=== PATIENT | female | born 1935 | race Caucasian/White ===

== ENCOUNTER 2018-01-04 06:11 | Emergency (ER) | payer MEDICARE, OTHER ==
[~2018-01-04] VITALS: Ht 172.7 cm; Wt 59.9 kg
[~2018-01-04 06:11] MED LIST: AMOX-362 PO; ASPI81TA94 PO; DIGO0.25 PO; FLEC50TA16 PO; LEVO50TA86 PO; MULT-1372 PO; OLME1TAB63 PO
--- NOTE | 2018-01-04 06:13 | ER Report ---
History and Physical Time Seen By MD: 06:13 HPI/ROS CHIEF COMPLAINT: Fall, left occipital contusion and abrasion HISTORY OF PRESENT ILLNESS: 82-year-old female presents ambulatory to the ER with her . She states she has restless leg syndrome and gets up to ambulate multiple times a night for approximately 20 minutes each time. Tonight she fell. She does not think she had a syncopal episode. She does not remember tripping. She does not recall the event. She is on flecainide and digoxin for dysrhythmias. She notes no prodromal symptoms. She's alert and oriented. She denies neck pain, post fall. She thinks her last tetanus shot was 3 years ago. Patient has movement of all extremities without pain or difficulty. REVIEW OF SYSTEMS: Respiratory: No cough, no dyspnea. Cardiovascular: No chest pain, no palpitations. Gastrointestinal: No vomiting, no abdominal pain. Musculoskeletal: No back pain. Allergies: Coded Allergies: No Known Drug Allergies (Unverified , 01/04/18) Home Meds Reported Medications Losartan Potassium (LOSARTAN POTASSIUM) 25 Mg Tablet, 25 MG PO QDAY 01/04/18 Cholecalciferol (Vitamin D3) (VITAMIN D3) 1,000 Unit Tablet, PO DAILY, TAB 01/04/18 Multivitamin (DAILY VALUE) 1 Each Tablet, 1 EACH PO DAILY 10/21/14 Flecainide Acetate (FLECAINIDE ACETATE) 50 Mg Tablet, 50 MG PO BID 10/21/14 Digoxin (DIGOXIN) 0.25 Mg/5 Ml Solution, 0.25 MG PO DAILY 10/21/14 Levothyroxine Sodium (LEVOTHYROXINE SODIUM) 50 Mcg Tablet, 50 MCG PO QDAY 10/21/14 Aspirin (ASPIRIN) 81 Mg Tab.chew, 81 MG PO QDAY, TAB.CHEW TAKE 1 TABLET BY MOUTH EVERY DAY 10/21/14 Discontinued Reported Medications Olmesartan/Hydrochlorothiazide (BENICAR HCT 40-25 MG TABLET) 1 Each Tablet, 1 EACH PO DAILY 10/21/14 Reviewed Nurses Notes: Yes Old Medical Records Reviewed: Yes Hx Smoking: No Smoking Status: Never Smoker Hx Substance Use Disorder: No Hx Alcohol Use: No Constitutional Vital Sign - Last 24 Hours 01/04/18 06:18 Temp 97.8 Pulse 76 Resp 14 B/P (MAP) 195/89 Pulse Ox 92 O2 Delivery Room Air Physical Exam General Appearance: The patient is alert, has no immediate need for airway protection and no current signs of toxicity. Palpation of the head and neck reveals no tenderness or trauma. There is a small hematoma with an abrasion over it on the left occipital area with a small 2.0 cm laceration vertically. There is no tenderness on aggressive palpation of the cervical spine. HEENT: Pupils equal and round no injection. TMs normal, oropharynx without redness or exudate, no dental trauma Respiratory: Chest is non tender, lungs are clear to auscultation. No chest wall tenderness Cardiac: regular rate and rhythm Gastrointestinal: Abdomen is soft and non tender, no masses, bowel sounds normal. Musculoskeletal: Neck: Neck is supple and non tender. Extremities have full range of motion and are non tender. No evidence of trauma Skin: No rashes or lesions. DIFFERENTIAL DIAGNOSIS: After history and physical exam differential diagnosis was considered for head injury including but not limited to concussion, skull fracture, intraparenchymal contusion, subarachnoid, subdural and epidural hematoma. Medical Decision Making ED Course/Re-evaluation ED Course Patient was admitted to an examination room. H&P was done. The dental diagnoses was considered. On clinical examination. Patient has a scalp laceration from a ground-level fall. She has no cervical tenderness. Her mental status is normal. She voices no other complaints. Her tetanus status is verified is up-to-date. The wound is infiltrated with lidocaine 1% with epinephrine. Wound is cleaned. 3 bryson are used to approximate the 2.0 cm laceration. Wound care is discussed. Decision to Disposition Date: Jan 04, 2018 Decision to Disposition Time: 06:30 Depart Departure Latest Vital Signs Vital Signs Date Time Temp Pulse Resp B/P (MAP) Pulse Ox O2 Delivery O2 Flow Rate FiO2 01/04/18 06:18 97.8 76 14 195/89 92 Room Air Impression: Primary Impression: Scalp contusion Additional Impression: Laceration of occipital region of scalp Condition: Improved Disposition: HOME OR SELF-CARE Referrals: TONYA LANDAVERDE (PCP) Patient Instructions: Laceration (ED) Additional Instructions: Have your bryson removed in one week Problem Qualifiers Primary Impression: Scalp contusion Encounter type: initial encounter Qualified Codes: S00.03XA - Contusion of scalp, initial encounter Additional Impression: Laceration of occipital region of scalp Encounter type: initial encounter Qualified Codes: S01.01XA - Laceration without foreign body of scalp, initial encounter SINCERE MOLINA DO Jan 04, 2018 06:13
[2018-01-04 06:18] VITALS: BP 195/89
[2018-01-04] MEDS ORDERED: LOSA25TA50 PO (06:18)
[2018-01-04] MEDS ORDERED: CHOL10005 PO (06:18)
== END 2018-01-04 06:49 | disposition home or self-care (01) ==
LOC: ER 06:39
DX: S01.01XA Laceration without foreign body of scalp, initial encounter (principal); S00.03XA Contusion of scalp, initial encounter; W18.30XA Fall on same level, unspecified, initial encounter
CPT/HCPCS: 99282

== ENCOUNTER → 2018-07-06 | Outpatient (CLI) | payer MEDICARE, OTHER ==
[~2018-07-06] MED LIST changes: +CHOL10005 PO; +LOSA25TA50 PO
--- NOTE | 2018-07-06 14:15 | RADIOLOGY IMAGING REPORT ---
FACILITY: [facility] - [place] PATIENT NAME: RASHAWN PUGA : [id number] MR: [id number] V: [id number] EXAM DATE: ORDERING PHYSICIAN: TONYA LANDAVERDE TECHNOLOGIST: Shannon Cadet PROCEDURE:BILATERAL DIGITAL SCREENING MAMMOGRAM WITH CAD ASSISTED INTERPRETATION & 3D TOMOSYNTHESIS COMPARISON:Prior mammograms 07/03/17, 07/02/16, 06/02/16, 05/31/15, 05/30/14, 05/26/13. INDICATIONS:SCREENING FINDINGS: Extremely dense heterogeneous fibroglandular tissue is seen throughout the breasts. The parenchymal pattern has remained stable allowing for difference in mammographic technique & patient positioning. There is no evidence of malignant appearing mass, malignant appearing calcifications or other secondary sign of malignancy in either breast. DIAGNOSTIC CATEGORY 1--NEGATIVE. RECOMMENDATIONS: ROUTINE MAMMOGRAM AND CLINICAL EVALUATION. IMPRESSION: BIRADS 1: Negative. No significant abnormality is seen. Dictated by: Shanique Goss M.D. on 07/06/2018 at 11:53 Transcribed by: CHAVO on 07/06/2018 at 14:04 Approved by: Shanique Goss M.D. on 07/06/2018 at 14:14 [facility]
== END ==
LOC: MAMO 01:28
PROVIDERS: ATTEND Nurse Practitioner Psychiatric/Mental Health
DX: Z12.31 Encounter for screening mammogram for malignant neoplasm of breast (principal)
CPT/HCPCS: 77063; 77067

== ENCOUNTER → 2019-06-06 | Outpatient (CLI) | payer MEDICARE, OTHER ==
[~2019-06-06] MED LIST changes: +ACET-1966 PO; +DIGO250T76 PO; +FURO-45 PO; -LOSA25TA50 PO; +LOSA25TA57 PO; +LOSA50TA80 PO; +METO25TA23 PO; +ROPI2TAB28 PO
[2019-06-06 11:35] LABS: PLATELET COUNT, AUTOMATED 243 K/uL (150-450)
== END ==
LOC: LAB 11:12
PROVIDERS: ATTEND Emergency Medicine
DX: I48.91 Unspecified atrial fibrillation (principal); E03.9 Hypothyroidism, unspecified; F03.90 Unspecified dementia, unspecified severity, without behavioral disturbance, psychotic disturbance, mood disturbance, and anxiety; I10 Essential (primary) hypertension; G25.81 Restless legs syndrome
CPT/HCPCS: 36415; 80162; 82040; 82247; 82310; 82374; 82435; 82565; 82607; 82947; 83540; 83550; 84075; 84132; 84155; 84295; 84443; 84450; 84460; 84520; 85025

== ENCOUNTER → 2019-06-09 | Outpatient (CLI) | payer MEDICARE, OTHER ==
[~2019-06-09] MED LIST changes: +GADOBENATE 529MG/1ML 15ML VIAL IVP ONE
--- NOTE | 2019-06-09 10:34 | RADIOLOGY IMAGING REPORT ---
FACILITY: [facility] PATIENT NAME: Roxana Cody : 1935 MR: [id number] V: [id number] EXAM DATE: ORDERING PHYSICIAN: TRACI ENNIS TECHNOLOGIST: Location: [facility] - [place] Patient: Roxana Cody : 1935 Visit/Account:[id number] Date of Sevice: 06/09/2019 Examination: MR brain without and with contrast History: Dementia Comparison: None Technique: Multiplane MR imaging was performed through the brain without and with contrast. 14 cc IV multihance was administered. Findings: Diffusion: None Ventricles: Normal Midline shift: None Extraxial fluid: None Midline craniocervical structures: Enhancing lesion fills the sella and extends into the suprasellar cistern measuring 1.8 cm craniocaudad by 2.1 cm transverse by 1.5 cm AP dimension. Degenerative pann us posterior to the dens. Parenchyma: Punctate foci of hemosiderin staining in the right temporal and right occipital lobe in k eeping with residua of prior microhemorrhage. Mild confluent periventricular white matter high signa l. A few scattered punctate to small white matter high signal foci. The hippocampi appear mildly atrophic. Other: Hyperostosis frontalis noted. Partial enhancement of the left frontal region hyperostosis melissa sures 2.4 x 0.9 cm transverse, axial image 20 x 0.7 cm craniocaudad. Vascular flow voids: Normal Orbits and paranasal sinuses: Cataract postsurgical change. Other: No significant additional finding. Impression: 1. Mildly atrophic bilateral hippocampi. 2. Mild chronic small vessel ischemic change. 3. 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 4. 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 5. Otherwise normal brain MR without and with contrast. Report Dictated By: Clinton Huertas MD at 06/09/2019 10:18 AM Report E-Signed By: Clinton Huertas MD at 06/09/2019 10:25 AM WSN:[id number]
== END ==
LOC: MRI 00:21
PROVIDERS: ATTEND Emergency Medicine
DX: G31.9 Degenerative disease of nervous system, unspecified (principal); F02.80 Dementia in other diseases classified elsewhere, unspecified severity, without behavioral disturbance, psychotic disturbance, mood disturbance, and anxiety; D35.2 Benign neoplasm of pituitary gland
CPT/HCPCS: 70553; A9577

== ENCOUNTER → 2019-06-09 | Outpatient (CLI) | payer MEDICARE, OTHER ==
[~2019-06-09] MED LIST changes: -GADOBENATE 529MG/1ML 15ML VIAL IVP ONE
== END ==
LOC: LAB 14:43
PROVIDERS: ATTEND Emergency Medicine
DX: D49.7 Neoplasm of unspecified behavior of endocrine glands and other parts of nervous system (principal)
CPT/HCPCS: 36415; 83001; 83002; 83520; 84146; 84305; 84439